=== PATIENT | male | born 1990 | race Caucasian/White ===

== ENCOUNTER 2025-06-03 09:02 | Inpatient (IN) | payer SELFPAY ==
[2025-06-03] MEDS ORDERED: Rocuronium Bromide 10 MG/ML (10ML VIAL) ONE (09:11)
[2025-06-03] MEDS ORDERED: Etomidate 40 MG (20 mL) VIAL ONE (09:11)
[2025-06-03] MEDS ORDERED: PROPOFOL 20 ML ONE (09:15)
[2025-06-03 09:28] LABS: #Basophils 0.03 10x3/uL (0.0-0.2); #Eosinophils Less than 0.03 10x3/uL (0.0-0.7); #Monocytes 0.92 10x3/uL (0.11-0.59); #Neutrophils 8.66 10x3/uL (1.40-6.50); %Basophils 0.3 % (0.0-1.0); %Eosinophils 0.0 % (0.0-10.0); %Lymphocytes 7.5 % (21.0-51.0); %Monocytes 8.8 % (0.0-10.0); %Neutrophils 83.1 % (42.0-75.0); Hematocrit 44.6 % (42.0-52.0); Hemoglobin 14.6 g/dL (14.0-18.0); Mean Corpuscular Hemoglobin 32.8 pg (27.0-31.0); Mean Corpuscular Volume 100.2 fL (78.0-98.0); Platelet Count 291 10x3/uL (130-400); Red Blood Cell (RBC) Count 4.45 mill/uL (4.70-6.10); White Blood Cell (WBC) Count 10.42 10x3/uL (4.8-10.8)
[2025-06-03 09:33] LABS: Actual Bicarbonate (HCO3v) 21.6 mEq/L (22-28); Analyzer IN Cardio ER; Base Excess -5.6 mEq/L (-2.0 to +3.0); Calcium, Ionized (venous) 1.09 mmol/L (1.16-1.32); Chloride (VBG) 100 mmol/L (98-106); Hematocrit-VBG 46 % (42.0-52.0); Hemoglobin (Hb) 15.8 g/dL (13.2-17.3); Potassium (VBG) 3.80 mmol/L (3.70-5.30); Sodium 135 mmol/L (133-146)
[2025-06-03 09:48] LABS: ALT (SGPT) 253 U/L (Less than 45); AST (SGOT) 578 U/L (11-34); Albumin 3.2 g/dL (3.1-4.5); Alkaline Phosphatase 140 U/L (40-110); Anion Gap 13 mmol/L (10-20); BUN (Urea Nitrogen) 6 mg/dL (8.9-20.6); Bilirubin, Total 0.8 mg/dL (0.3-1.2); Calc. Creatinine Clearance 0 mL/min (70-130); Calcium 7.9 mg/dL (7.8-10.44); Carbon Dioxide 22 mmol/L (22-29); Chloride 102 mmol/L (98-107); Globulin 2.9 g/dL (2.4-3.5); Glucose 151 mg/dL (70-105); Magnesium 1.7 mg/dL (1.6-2.6); Potassium 3.9 mmol/L (3.5-5.1); Sodium 133 mmol/L (136-145)
[2025-06-03] MEDS ORDERED: Dextrose 50% Abboject 50 ML SYRINGE ONE (10:01)
[2025-06-03 10:20] LABS: Bacteria/HPF None Seen HPF (None Seen); CAUTI Indications for Culture Alt mental st,lethar; Glucose, Urine (Dipstick) Greater than 1000 mg/dL (Negative); Leukocyte Negative Leu/uL (Negative); Protein, Urine (Dipstick) Negative (Neg-Trace); RBC/HPF 0-3 HPF (0-3); Specific Gravity, Urine 1.018 (1.002-1.036); WBC/HPF 0-3 HPF (0-3)
[2025-06-03 10:23] LABS: Urine Culture Reflex No No
[2025-06-03 10:28] LABS: Cocaine Metabolite Screen Negative (Negative); THC/Cannabinoid Screen Negative (Negative); Tricyclic Screen Negative (Negative)
[2025-06-03 10:31] LABS: Acetaminophen Less than 10 mcg/mL (Less than 10); Salicylate Less than 8.0 mg/dL (Less than 8.0)
[2025-06-03] MEDS ORDERED: Cefepime 2 GM VIAL ONE (10:43)
[2025-06-03] MEDS ORDERED: NOREPINEPHRINE 8 MG/250 ML-D5W 250 ML ONE (12:02)
[2025-06-03] MEDS ORDERED: Iopamidol-370 76% 500 ML MDV (1 ML CHARGE) ONE (13:00)
[2025-06-03] MEDS ORDERED: Electrolyte Replacement Protocol 1 EACH FS SCH (13:53)
[2025-06-03] MEDS ORDERED: Ondansetron PF 4 MG/2 ML Vial IVP PRN (13:53)
[2025-06-03] MEDS ORDERED: Glucagon 1 MG/ML KIT IM PRN (13:53)
[2025-06-03] MEDS ORDERED: Propofol BOLUS 1,000 MG/100 ML VIAL IV PRN (15:00)
[2025-06-03] MEDS ORDERED: Fentanyl BOLUS 100 ML IVPB PRN (15:00)
[2025-06-03] MEDS: Communication Order-Pharmacy FS ONE (15:07)
[2025-06-03] MEDS: Vancomycin 1.25 GM / NS 250 ML VIAL-2-BAG IVPB SCH (15:08)
[2025-06-03] MEDS: Acetaminophen 500 MG TAB PO PRN (15:14)
[2025-06-03] MEDS: LevoFLOXacin 750 mg/D5W 750 MG in Premix 1 BAG IVPB SCH (15:14)
[2025-06-03] MEDS: Magnesium 2 GM/50 ML(in water) 2 GM in Premix 1 BAG IVPB SCH (16:35)
[2025-06-03] MEDS: Ventilator Sedation Protocol 1 EACH FS ONE (16:36)
[2025-06-03] MEDS: Cefepime 2 GM VIAL IVPB SCH (17:26)
[2025-06-03] MEDS: Dextrose 50% Abboject 50 ML SYRINGE SLOW IVP PRN (19:23)
[2025-06-03 20:45] LABS: Anion Gap 15 mmol/L (10-20); BUN (Urea Nitrogen) 6 mg/dL (8.9-20.6); Calc. Creatinine Clearance 188 mL/min (70-130); Calcium 7.4 mg/dL (7.8-10.44); Carbon Dioxide 19 mmol/L (22-29); Chloride 104 mmol/L (98-107); Glucose 97 mg/dL (70-105); Potassium 3.9 mmol/L (3.5-5.1); Sodium 134 mmol/L (136-145)
[2025-06-03] MEDS: Mupirocin 1 GM TUBE NASAL DECOLONIZATION NASAL SCH (20:45)
[2025-06-03] MEDS: Famotidine/PF 20 mg/2ml Vial SLOW IVP SCH (20:45)
[2025-06-03] MEDS: Vancomycin 1.5 GM / NS 500ML VIAL-2-BAG IVPB SCH (21:33)
[2025-06-03] MEDS: NOREPINEPHRINE 8 MG/250 ML-D5W 250 ML IVPB SCH (22:34)
[2025-06-04 01:32] LABS: Actual Bicarbonate (HCO3a) 19.7 mEq/L (22-28); Base Excess (BEa) -5.0 mEq/L (-2.0 to +3.0); CO2 Tension 35.7 mmHg (35.0-45.0); Calcium, Ionized (arterial) 1.07 mmol/L (1.12-1.30); Hematocrit-ABG 44 % (42.0-52.0); Hemoglobin (Hb) 15.1 g/dL (14.0-18.0); O2 Tension (PaO2), arterial 92.8 mmHg (80.0-100.0); Potassium - ABG Lab 4.40 mmol/L (3.70-5.30); pH, Arterial 7.359 (7.35-7.45)
[2025-06-04 01:35] LABS: ALV-art Gradient 219.075 mmHg (0-20); Puncture Site Arterial Line
[2025-06-04 04:37] LABS: Vancomycin, Random 13.9 ug/mL (See Comment)
[2025-06-04 04:39] LABS: ALT (SGPT) 166 U/L (Less than 45); AST (SGOT) 314 U/L (11-34); Albumin 2.3 g/dL (3.1-4.5); Alkaline Phosphatase 114 U/L (40-110); Anion Gap 16 mmol/L (10-20); BUN (Urea Nitrogen) 7 mg/dL (8.9-20.6); Bilirubin, Total 0.6 mg/dL (0.3-1.2); Calc. Creatinine Clearance 204 mL/min (70-130); Calcium 7.2 mg/dL (7.8-10.44); Carbon Dioxide 17 mmol/L (22-29); Chloride 109 mmol/L (98-107); Globulin 2.7 g/dL (2.4-3.5); Glucose 73 mg/dL (70-105); Potassium 4.3 mmol/L (3.5-5.1); Sodium 138 mmol/L (136-145)
[2025-06-04 04:53] LABS: Hematocrit 42.4 % (42.0-52.0); Hemoglobin 13.9 g/dL (14.0-18.0); Mean Corpuscular Hemoglobin 32.7 pg (27.0-31.0); Mean Corpuscular Volume 99.8 fL (78.0-98.0); Platelet Count 263 10x3/uL (130-400); Red Blood Cell (RBC) Count 4.25 mill/uL (4.70-6.10); White Blood Cell (WBC) Count 10.96 10x3/uL (4.8-10.8)
[2025-06-04 05:49] LABS: Platelet Adequacy Comment Platelets Normal; RBC Morphology Within Normal Limits
[2025-06-04 08:26] LABS: Actual Bicarbonate (HCO3a) 24.1 mEq/L (22-28); Base Excess (BEa) -1.4 mEq/L (-2.0 to +3.0); CO2 Tension 43.3 mmHg (35.0-45.0); Calcium, Ionized (arterial) 1.12 mmol/L (1.12-1.30); O2 Tension (PaO2), arterial 86.2 mmHg (80.0-100.0); Potassium - ABG Lab 4.02 mmol/L (3.70-5.30); pH, Arterial 7.364 (7.35-7.45)
[2025-06-04] MEDS: Enoxaparin 40 MG (0.4 mL) SYRINGE SC SCH (08:48)
[2025-06-04] MEDS: Vancomycin HCl 1.25 GM in Sodium Chloride 0.9% 250 ML 250 ML IVPB SCH ×2 (10:27→15:39)
[2025-06-04 17:54] LABS: INR-International Normal Ratio 1.4; PTT 32.3 sec (22.9-36.1); Prothrombin Time 16.9 sec (12.0-14.7)
[2025-06-04] MEDS: Glucagon 1 MG/ML KIT IVP SCH (19:08)
[2025-06-04] MEDS ORDERED: Vasopressin In 0.9 % NaCl 40 UNIT in Premix 1 BAG IV SCH (19:30)
[2025-06-04 20:30] LABS: ALT (SGPT) 162 U/L (Less than 45); AST (SGOT) 356 U/L (11-34); Albumin 2.3 g/dL (3.1-4.5); Alkaline Phosphatase 141 U/L (40-110); Anion Gap 13 mmol/L (10-20); BUN (Urea Nitrogen) 8 mg/dL (8.9-20.6); Bilirubin, Total 0.8 mg/dL (0.3-1.2); Calc. Creatinine Clearance 177 mL/min (70-130); Calcium 7.6 mg/dL (7.8-10.44); Carbon Dioxide 21 mmol/L (22-29); Chloride 109 mmol/L (98-107); Globulin 3.0 g/dL (2.4-3.5); Glucose 184 mg/dL (70-105); Potassium 4.3 mmol/L (3.5-5.1); Sodium 139 mmol/L (136-145)
[2025-06-05 05:06] LABS: #Basophils 0.03 10x3/uL (0.0-0.2); #Eosinophils 0.17 10x3/uL (0.0-0.7); #Monocytes 0.58 10x3/uL (0.11-0.59); #Neutrophils 5.97 10x3/uL (1.40-6.50); %Basophils 0.4 % (0.0-1.0); %Eosinophils 2.0 % (0.0-10.0); %Lymphocytes 20.8 % (21.0-51.0); %Monocytes 6.8 % (0.0-10.0); %Neutrophils 69.6 % (42.0-75.0); Hematocrit 40.8 % (42.0-52.0); Hemoglobin 12.8 g/dL (14.0-18.0); Mean Corpuscular Hemoglobin 31.9 pg (27.0-31.0); Mean Corpuscular Volume 101.7 fL (78.0-98.0); Platelet Count 218 10x3/uL (130-400); Red Blood Cell (RBC) Count 4.01 mill/uL (4.70-6.10); White Blood Cell (WBC) Count 8.56 10x3/uL (4.8-10.8)
[2025-06-05 05:28] LABS: INR-International Normal Ratio 1.2; PTT 29.9 sec (22.9-36.1); Prothrombin Time 15.8 sec (12.0-14.7)
[2025-06-05 05:48] LABS: Vancomycin, Random 40.1 ug/mL (See Comment)
[2025-06-05 05:52] LABS: ALT (SGPT) 147 U/L (Less than 45); AST (SGOT) 268 U/L (11-34); Albumin 2.1 g/dL (3.1-4.5); Alkaline Phosphatase 161 U/L (40-110); Anion Gap 10 mmol/L (10-20); BUN (Urea Nitrogen) 9 mg/dL (8.9-20.6); Bilirubin, Total 0.8 mg/dL (0.3-1.2); Calc. Creatinine Clearance 118 mL/min (70-130); Calcium 8.3 mg/dL (7.8-10.44); Carbon Dioxide 21 mmol/L (22-29); Chloride 113 mmol/L (98-107); Globulin 3.0 g/dL (2.4-3.5); Glucose 115 mg/dL (70-105); Potassium 3.9 mmol/L (3.5-5.1); Sodium 140 mmol/L (136-145)
[2025-06-05 07:13] LABS: Actual Bicarbonate (HCO3a) 21.0 mEq/L (22-28); Base Excess (BEa) -3.2 mEq/L (-2.0 to +3.0); CO2 Tension 35.1 mmHg (35.0-45.0); Calcium, Ionized (arterial) 1.18 mmol/L (1.12-1.30); Hematocrit-ABG 40 % (42.0-52.0); Hemoglobin (Hb) 13.6 g/dL (14.0-18.0); O2 Tension (PaO2), arterial 108.2 mmHg (80.0-100.0); Potassium - ABG Lab 3.85 mmol/L (3.70-5.30); pH, Arterial 7.395 (7.35-7.45)
[2025-06-05 07:14] LABS: Puncture Site Arterial Line
[2025-06-05 07:15] LABS: ALV-art Gradient 133.125 mmHg (0-20)
[2025-06-05] MEDS: Vancomycin 1 GM in Premix 1 BAG IVPB SCH (20:21)
[2025-06-06 05:22] LABS: #Basophils 0.06 10x3/uL (0.0-0.2); #Eosinophils 0.35 10x3/uL (0.0-0.7); #Monocytes 0.83 10x3/uL (0.11-0.59); #Neutrophils 5.69 10x3/uL (1.40-6.50); %Basophils 0.7 % (0.0-1.0); %Eosinophils 4.2 % (0.0-10.0); %Lymphocytes 15.4 % (21.0-51.0); %Monocytes 10.0 % (0.0-10.0); %Neutrophils 69.0 % (42.0-75.0); Hematocrit 39.2 % (42.0-52.0); Hemoglobin 12.8 g/dL (14.0-18.0); Mean Corpuscular Hemoglobin 32.5 pg (27.0-31.0); Mean Corpuscular Volume 99.5 fL (78.0-98.0); Platelet Count 206 10x3/uL (130-400); Red Blood Cell (RBC) Count 3.94 mill/uL (4.70-6.10); White Blood Cell (WBC) Count 8.26 10x3/uL (4.8-10.8)
[2025-06-06 05:29] LABS: Vancomycin, Random 30.4 ug/mL (See Comment)
[2025-06-06 05:35] LABS: ALT (SGPT) 129 U/L (Less than 45); AST (SGOT) 164 U/L (11-34); Albumin 1.9 g/dL (3.1-4.5); Alkaline Phosphatase 192 U/L (40-110); Anion Gap 13 mmol/L (10-20); BUN (Urea Nitrogen) 16 mg/dL (8.9-20.6); Bilirubin, Total 1.3 mg/dL (0.3-1.2); Calc. Creatinine Clearance 62 mL/min (70-130); Calcium 8.9 mg/dL (7.8-10.44); Carbon Dioxide 24 mmol/L (22-29); Chloride 111 mmol/L (98-107); Globulin 3.4 g/dL (2.4-3.5); Glucose 210 mg/dL (70-105); Potassium 4.3 mmol/L (3.5-5.1); Sodium 144 mmol/L (136-145)
[2025-06-06 05:40] LABS: INR-International Normal Ratio 1.1; Prothrombin Time 14.3 sec (12.0-14.7)
[2025-06-06 05:52] LABS: PTT 22.0 sec (22.9-36.1)
[2025-06-06 07:27] VITALS: BMI 24.7
[2025-06-06 08:00] LABS: Actual Bicarbonate (HCO3a) 24.3 mEq/L (22-28); Base Excess (BEa) 0.2 mEq/L (-2.0 to +3.0); CO2 Tension 37.9 mmHg (35.0-45.0); Calcium, Ionized (arterial) 1.22 mmol/L (1.12-1.30); Hematocrit-ABG 40 % (42.0-52.0); Hemoglobin (Hb) 13.7 g/dL (14.0-18.0); O2 Tension (PaO2), arterial 156.1 mmHg (80.0-100.0); Potassium - ABG Lab 4.50 mmol/L (3.70-5.30); pH, Arterial 7.425 (7.35-7.45)
[2025-06-06 08:01] LABS: ALV-art Gradient 81.725 mmHg (0-20); Puncture Site Arterial Line
[2025-06-06] MEDS: Insulin Glargine 30 UNITS/0.3 ML VIAL SC SCH (15:22)
[2025-06-06] MEDS ORDERED: Vancomycin 1 GM in Premix 1 BAG IVPB SCH (20:00)
[2025-06-07] MEDS: Insulin Glargine 30 UNITS/0.3 ML VIAL SC SCH (08:23)
[2025-06-07] MEDS: Albumin 25% 25 GM (100 mL) BOT IVPB SCH ×2 (13:37→20:25)
[2025-06-07] MEDS: Hydrocortisone Sod Succ/PF 100 mg/2 ml Vial IVP SCH ×2 (13:58→20:25)
[2025-06-07 14:14] LABS: #Basophils 0.04 10x3/uL (0.0-0.2); #Eosinophils 0.32 10x3/uL (0.0-0.7); #Monocytes 0.96 10x3/uL (0.11-0.59); #Neutrophils 2.96 10x3/uL (1.40-6.50); %Basophils 0.6 % (0.0-1.0); %Eosinophils 5.0 % (0.0-10.0); %Lymphocytes 32.3 % (21.0-51.0); %Monocytes 15.1 % (0.0-10.0); %Neutrophils 46.5 % (42.0-75.0); Hematocrit 32.6 % (42.0-52.0); Hemoglobin 10.7 g/dL (14.0-18.0); Mean Corpuscular Hemoglobin 32.8 pg (27.0-31.0); Mean Corpuscular Volume 100.0 fL (78.0-98.0); Platelet Count 264 10x3/uL (130-400); Red Blood Cell (RBC) Count 3.26 mill/uL (4.70-6.10); White Blood Cell (WBC) Count 6.37 10x3/uL (4.8-10.8)
[2025-06-07 14:28] LABS: INR-International Normal Ratio 1.2; PTT 37.9 sec (22.9-36.1); Prothrombin Time 15.2 sec (12.0-14.7)
[2025-06-07 14:40] LABS: ALT (SGPT) 84 U/L (Less than 45); AST (SGOT) 80 U/L (11-34); Albumin 1.9 g/dL (3.1-4.5); Alkaline Phosphatase 189 U/L (40-110); Anion Gap 13 mmol/L (10-20); BUN (Urea Nitrogen) 22 mg/dL (8.9-20.6); Bilirubin, Total 0.9 mg/dL (0.3-1.2); Calc. Creatinine Clearance 49 mL/min (70-130); Calcium 8.9 mg/dL (7.8-10.44); Carbon Dioxide 25 mmol/L (22-29); Chloride 112 mmol/L (98-107); Globulin 3.4 g/dL (2.4-3.5); Glucose 124 mg/dL (70-105); Magnesium 2.1 mg/dL (1.6-2.6); Potassium 3.4 mmol/L (3.5-5.1); Sodium 147 mmol/L (136-145)
[2025-06-07] MEDS: Furosemide 20 MG (2 mL) VIAL SLOW IVP SCH (15:55)
[2025-06-07 16:02] LABS: Actual Bicarbonate (HCO3a) 24.2 mEq/L (22-28); Base Excess (BEa) 2.8 mEq/L (-2.0 to +3.0); CO2 Tension 27.5 mmHg (35.0-45.0); Calcium, Ionized (arterial) 1.17 mmol/L (1.12-1.30); Hematocrit-ABG 33 % (42.0-52.0); Hemoglobin (Hb) 11.1 g/dL (14.0-18.0); O2 Tension (PaO2), arterial 573.5 mmHg (80.0-100.0); Potassium - ABG Lab 3.52 mmol/L (3.70-5.30); pH, Arterial 7.563 (7.35-7.45)
[2025-06-07 16:03] LABS: Puncture Site Arterial Line
[2025-06-07 16:04] LABS: ALV-art Gradient 105.125 mmHg (0-20)
[2025-06-07] MEDS: Phenylephrine 40 MG/NS 250 ML 40 MG in Premix 1 BAG IVPB SCH (16:15)
[2025-06-07] MEDS: Potassium Chloride 40 MEQ in Premix 1 BAG IVPB SCH (17:17)
[2025-06-07 18:52] LABS: #Basophils 0.04 10x3/uL (0.0-0.2); #Eosinophils 0.14 10x3/uL (0.0-0.7); #Monocytes 0.51 10x3/uL (0.11-0.59); #Neutrophils 3.72 10x3/uL (1.40-6.50); %Basophils 0.8 % (0.0-1.0); %Eosinophils 2.8 % (0.0-10.0); %Lymphocytes 11.7 % (21.0-51.0); %Monocytes 10.1 % (0.0-10.0); %Neutrophils 74.0 % (42.0-75.0); Hematocrit 32.6 % (42.0-52.0); Hemoglobin 10.8 g/dL (14.0-18.0); Mean Corpuscular Hemoglobin 32.4 pg (27.0-31.0); Mean Corpuscular Volume 97.9 fL (78.0-98.0); Platelet Count 262 10x3/uL (130-400); Red Blood Cell (RBC) Count 3.33 mill/uL (4.70-6.10); White Blood Cell (WBC) Count 5.03 10x3/uL (4.8-10.8)
[2025-06-07 19:13] LABS: Bacteria/HPF None Seen HPF (None Seen); RBC/HPF None Seen HPF (0-3); WBC/HPF 0-3 HPF (0-3)
[2025-06-07 19:17] LABS: INR-International Normal Ratio 1.3; Prothrombin Time 16.3 sec (12.0-14.7)
[2025-06-07 19:18] LABS: PTT 38.6 sec (22.9-36.1)
[2025-06-07 21:28] LABS: ALT (SGPT) 86 U/L (Less than 45); AST (SGOT) 97 U/L (11-34); Albumin 2.3 g/dL (3.1-4.5); Alkaline Phosphatase 215 U/L (40-110); Anion Gap 19 mmol/L (10-20); BUN (Urea Nitrogen) 27 mg/dL (8.9-20.6); Bilirubin, Total 1.6 mg/dL (0.3-1.2); Calc. Creatinine Clearance 47 mL/min (70-130); Calcium 9.4 mg/dL (7.8-10.44); Carbon Dioxide 25 mmol/L (22-29); Chloride 109 mmol/L (98-107); Globulin 3.7 g/dL (2.4-3.5); Glucose 336 mg/dL (70-105); Magnesium 2.0 mg/dL (1.6-2.6); Potassium 4.2 mmol/L (3.5-5.1); Sodium 149 mmol/L (136-145)
[2025-06-07 21:55] LABS: Actual Bicarbonate (HCO3a) 27.4 mEq/L (22-28); Base Excess (BEa) 3.7 mEq/L (-2.0 to +3.0); CO2 Tension 38.1 mmHg (35.0-45.0); Calcium, Ionized (arterial) 1.15 mmol/L (1.12-1.30); Hematocrit-ABG 34 % (42.0-52.0); Hemoglobin (Hb) 11.7 g/dL (14.0-18.0); O2 Tension (PaO2), arterial 612.1 mmHg (80.0-100.0); Potassium - ABG Lab 4.18 mmol/L (3.70-5.30); Puncture Site LINE; pH, Arterial 7.475 (7.35-7.45)
[2025-06-07 21:56] LABS: ALV-art Gradient 53.275 mmHg (0-20)
[2025-06-08 04:26] LABS: #Basophils Less than 0.03 10x3/uL (0.0-0.2); #Eosinophils Less than 0.03 10x3/uL (0.0-0.7); #Monocytes 0.80 10x3/uL (0.11-0.59); #Neutrophils 3.47 10x3/uL (1.40-6.50); %Basophils 0.4 % (0.0-1.0); %Eosinophils 0.0 % (0.0-10.0); %Lymphocytes 12.5 % (21.0-51.0); %Monocytes 16.2 % (0.0-10.0); %Neutrophils 70.1 % (42.0-75.0); Hematocrit 30.4 % (42.0-52.0); Hemoglobin 10.0 g/dL (14.0-18.0); Mean Corpuscular Hemoglobin 32.5 pg (27.0-31.0); Mean Corpuscular Volume 98.7 fL (78.0-98.0); Platelet Count 249 10x3/uL (130-400); Red Blood Cell (RBC) Count 3.08 mill/uL (4.70-6.10); White Blood Cell (WBC) Count 4.95 10x3/uL (4.8-10.8)
[2025-06-08 04:35] VITALS: TEMP 98.2
[2025-06-08 04:41] LABS: ALT (SGPT) 67 U/L (Less than 45); AST (SGOT) 60 U/L (11-34); Albumin 3.0 g/dL (3.1-4.5); Alkaline Phosphatase 169 U/L (40-110); Anion Gap 16 mmol/L (10-20); BUN (Urea Nitrogen) 29 mg/dL (8.9-20.6); Bilirubin, Total 1.2 mg/dL (0.3-1.2); Calc. Creatinine Clearance 50 mL/min (70-130); Calcium 9.3 mg/dL (7.8-10.44); Carbon Dioxide 28 mmol/L (22-29); Chloride 109 mmol/L (98-107); Globulin 3.0 g/dL (2.4-3.5); Glucose 199 mg/dL (70-105); Magnesium 2.2 mg/dL (1.6-2.6); Potassium 3.8 mmol/L (3.5-5.1); Sodium 149 mmol/L (136-145)
[2025-06-08 04:51] LABS: INR-International Normal Ratio 1.3; PTT 32.7 sec (22.9-36.1); Prothrombin Time 15.8 sec (12.0-14.7)
[2025-06-08] MEDS: Potassium Chloride 20 MEQ in Premix 1 BAG IVPB ONE (05:48)
[2025-06-08 06:18] LABS: Actual Bicarbonate (HCO3a) 28.5 mEq/L (22-28); Base Excess (BEa) 5.7 mEq/L (-2.0 to +3.0); CO2 Tension 34.9 mmHg (35.0-45.0); Calcium, Ionized (arterial) 1.13 mmol/L (1.12-1.30); Hematocrit-ABG 32 % (42.0-52.0); Hemoglobin (Hb) 11.0 g/dL (14.0-18.0); O2 Tension (PaO2), arterial 510.5 mmHg (80.0-100.0); Potassium - ABG Lab 3.99 mmol/L (3.70-5.30); pH, Arterial 7.530 (7.35-7.45)
[2025-06-08 06:26] LABS: ALV-art Gradient 158.875 mmHg (0-20); Puncture Site Arterial Line
[2025-06-08 07:01] LABS: Bacteria/HPF None Seen HPF (None Seen); Glucose, Urine (Dipstick) 500 mg/dL (Negative); Leukocyte 250 Leu/uL (Negative); Protein, Urine (Dipstick) Negative (Neg-Trace); RBC/HPF 0-3 HPF (0-3); Specific Gravity, Urine 1.010 (1.002-1.036)
[2025-06-08 11:44] LABS: Actual Bicarbonate (HCO3a) 26.6 mEq/L (22-28); Base Excess (BEa) 3.5 mEq/L (-2.0 to +3.0); CO2 Tension 34.9 mmHg (35.0-45.0); Calcium, Ionized (arterial) 1.12 mmol/L (1.12-1.30); Hematocrit-ABG 31 % (42.0-52.0); Hemoglobin (Hb) 10.7 g/dL (14.0-18.0); O2 Tension (PaO2), arterial 564.0 mmHg (80.0-100.0); Potassium - ABG Lab 3.57 mmol/L (3.70-5.30); pH, Arterial 7.500 (7.35-7.45)
[2025-06-08 11:50] LABS: Puncture Site Arterial Line
[2025-06-08 11:51] LABS: ALV-art Gradient 105.375 mmHg (0-20)
[2025-06-08 11:56] LABS: Actual Bicarbonate (HCO3a) 27.0 mEq/L (22-28); Base Excess (BEa) 3.0 mEq/L (-2.0 to +3.0); CO2 Tension 39.3 mmHg (35.0-45.0); Calcium, Ionized (arterial) 1.14 mmol/L (1.12-1.30); Hematocrit-ABG 31 % (42.0-52.0); Hemoglobin (Hb) 10.7 g/dL (14.0-18.0); O2 Tension (PaO2), arterial 582.8 mmHg (80.0-100.0); Potassium - ABG Lab 3.60 mmol/L (3.70-5.30); pH, Arterial 7.455 (7.35-7.45)
[2025-06-08 11:57] LABS: ALV-art Gradient 81.075 mmHg (0-20); Puncture Site Arterial Line
[2025-06-08 12:10] LABS: Actual Bicarbonate (HCO3a) 30.5 mEq/L (22-28); Base Excess (BEa) 2.6 mEq/L (-2.0 to +3.0); Calcium, Ionized (arterial) 1.18 mmol/L (1.12-1.30); Hematocrit-ABG 33 % (42.0-52.0); Hemoglobin (Hb) 11.2 g/dL (14.0-18.0); O2 Tension (PaO2), arterial 596.4 mmHg (80.0-100.0); Potassium - ABG Lab 3.58 mmol/L (3.70-5.30); pH, Arterial 7.292 (7.35-7.45)
[2025-06-08 12:14] LABS: CO2 Tension 64.5 mmHg (35.0-45.0); Puncture Site Arterial Line
[2025-06-08 16:46] LABS: #Basophils Less than 0.03 10x3/uL (0.0-0.2); #Eosinophils 0.04 10x3/uL (0.0-0.7); #Monocytes 1.34 10x3/uL (0.11-0.59); #Neutrophils 5.19 10x3/uL (1.40-6.50); %Basophils 0.3 % (0.0-1.0); %Eosinophils 0.5 % (0.0-10.0); %Lymphocytes 16.0 % (21.0-51.0); %Monocytes 16.9 % (0.0-10.0); %Neutrophils 65.4 % (42.0-75.0); Hematocrit 29.7 % (42.0-52.0); Hemoglobin 9.7 g/dL (14.0-18.0); Mean Corpuscular Hemoglobin 32.7 pg (27.0-31.0); Mean Corpuscular Volume 100.0 fL (78.0-98.0); Platelet Count 264 10x3/uL (130-400); Red Blood Cell (RBC) Count 2.97 mill/uL (4.70-6.10); White Blood Cell (WBC) Count 7.93 10x3/uL (4.8-10.8)
[2025-06-08 17:00] LABS: INR-International Normal Ratio 1.2; PTT 36.3 sec (22.9-36.1); Prothrombin Time 15.3 sec (12.0-14.7)
[2025-06-08 17:37] LABS: ALT (SGPT) 61 U/L (Less than 45); AST (SGOT) 43 U/L (11-34); Albumin 2.7 g/dL (3.1-4.5); Alkaline Phosphatase 167 U/L (40-110); Anion Gap 13 mmol/L (10-20); BUN (Urea Nitrogen) 34 mg/dL (8.9-20.6); Bilirubin, Direct 0.4 mg/dL (0.1-0.3); Bilirubin, Total 0.9 mg/dL (0.3-1.2); Calc. Creatinine Clearance 54 mL/min (70-130); Calcium 9.1 mg/dL (7.8-10.44); Carbon Dioxide 31 mmol/L (22-29); Chloride 112 mmol/L (98-107); Globulin 3.1 g/dL (2.4-3.5); Glucose 142 mg/dL (70-105); Magnesium 2.7 mg/dL (1.6-2.6); Potassium 3.9 mmol/L (3.5-5.1); Sodium 152 mmol/L (136-145)
[2025-06-08 19:04] LABS: Actual Bicarbonate (HCO3a) 26.5 mEq/L (22-28); Base Excess (BEa) 0.9 mEq/L (-2.0 to +3.0); CO2 Tension 46.3 mmHg (35.0-45.0); Calcium, Ionized (arterial) 1.14 mmol/L (1.12-1.30); Hematocrit-ABG 32 % (42.0-52.0); Hemoglobin (Hb) 10.8 g/dL (14.0-18.0); O2 Tension (PaO2), arterial 504.2 mmHg (80.0-100.0); Potassium - ABG Lab 3.72 mmol/L (3.70-5.30); pH, Arterial 7.375 (7.35-7.45)
[2025-06-08 19:05] LABS: Puncture Site Arterial Line
[2025-06-08 19:06] LABS: ALV-art Gradient 150.925 mmHg (0-20)
[2025-06-08 22:14] LABS: Actual Bicarbonate (HCO3a) 24.7 mEq/L (22-28); Base Excess (BEa) -0.3 mEq/L (-2.0 to +3.0); CO2 Tension 41.8 mmHg (35.0-45.0); Calcium, Ionized (arterial) 1.17 mmol/L (1.12-1.30); Hematocrit-ABG 32 % (42.0-52.0); Hemoglobin (Hb) 10.9 g/dL (14.0-18.0); O2 Tension (PaO2), arterial 585.4 mmHg (80.0-100.0); Potassium - ABG Lab 3.31 mmol/L (3.70-5.30); pH, Arterial 7.390 (7.35-7.45)
[2025-06-08 22:18] LABS: ALV-art Gradient 75.350 mmHg (0-20)
[2025-06-09 05:04] LABS: #Basophils Less than 0.03 10x3/uL (0.0-0.2); #Eosinophils 0.03 10x3/uL (0.0-0.7); #Monocytes 1.40 10x3/uL (0.11-0.59); #Neutrophils 6.13 10x3/uL (1.40-6.50); %Basophils 0.2 % (0.0-1.0); %Eosinophils 0.3 % (0.0-10.0); %Lymphocytes 17.5 % (21.0-51.0); %Monocytes 15.1 % (0.0-10.0); %Neutrophils 66.1 % (42.0-75.0); Hematocrit 29.6 % (42.0-52.0); Hemoglobin 9.7 g/dL (14.0-18.0); Mean Corpuscular Hemoglobin 32.2 pg (27.0-31.0); Mean Corpuscular Volume 98.3 fL (78.0-98.0); Platelet Count 276 10x3/uL (130-400); Red Blood Cell (RBC) Count 3.01 mill/uL (4.70-6.10); White Blood Cell (WBC) Count 9.27 10x3/uL (4.8-10.8)
[2025-06-09 05:17] LABS: INR-International Normal Ratio 1.2; Prothrombin Time 14.9 sec (12.0-14.7)
[2025-06-09 05:18] LABS: PTT 30.9 sec (22.9-36.1)
[2025-06-09 05:28] LABS: ALT (SGPT) 53 U/L (Less than 45); AST (SGOT) 50 U/L (11-34); Albumin 3.4 g/dL (3.1-4.5); Alkaline Phosphatase 176 U/L (40-110); Anion Gap 21 mmol/L (10-20); BUN (Urea Nitrogen) 40 mg/dL (8.9-20.6); Bilirubin, Direct 0.4 mg/dL (0.1-0.3); Bilirubin, Total 0.7 mg/dL (0.3-1.2); Calc. Creatinine Clearance 49 mL/min (70-130); Calcium 9.4 mg/dL (7.8-10.44); Carbon Dioxide 28 mmol/L (22-29); Chloride 111 mmol/L (98-107); Globulin 3.0 g/dL (2.4-3.5); Glucose 146 mg/dL (70-105); Magnesium 2.6 mg/dL (1.6-2.6); Potassium 3.0 mmol/L (3.5-5.1); Sodium 157 mmol/L (136-145)
[2025-06-09] MEDS ORDERED: Potassium Chloride 40 MEQ in Premix 1 BAG IVPB SCH (05:45)
[2025-06-09 06:28] LABS: Actual Bicarbonate (HCO3a) 28.6 mEq/L (22-28); Base Excess (BEa) 5.7 mEq/L (-2.0 to +3.0); CO2 Tension 35.1 mmHg (35.0-45.0); Calcium, Ionized (arterial) 1.16 mmol/L (1.12-1.30); Hematocrit-ABG 29 % (42.0-52.0); Hemoglobin (Hb) 9.9 g/dL (14.0-18.0); O2 Tension (PaO2), arterial 559.7 mmHg (80.0-100.0); Potassium - ABG Lab 3.01 mmol/L (3.70-5.30); pH, Arterial 7.529 (7.35-7.45)
[2025-06-09 06:29] LABS: ALV-art Gradient 109.425 mmHg (0-20); Puncture Site Arterial Line
[2025-06-09] MEDS ORDERED: Famotidine/PF 20 mg/2ml Vial SLOW IVP SCH (09:00)
[2025-06-09 12:37] VITALS: BMI 24.5
[2025-06-09] MEDS ORDERED: Iopamidol-370 76% 500 ML MDV (1 ML CHARGE) ONE (13:33)
[2025-06-09 13:34] LABS: ALV-art Gradient 141.675 mmHg (0-20); Actual Bicarbonate (HCO3a) 26.6 mEq/L (22-28); Base Excess (BEa) 2.3 mEq/L (-2.0 to +3.0); CO2 Tension 40.5 mmHg (35.0-45.0); Calcium, Ionized (arterial) 1.16 mmol/L (1.12-1.30); Hematocrit-ABG 29 % (42.0-52.0); Hemoglobin (Hb) 9.9 g/dL (14.0-18.0); O2 Tension (PaO2), arterial 520.7 mmHg (80.0-100.0); Potassium - ABG Lab 3.17 mmol/L (3.70-5.30); Puncture Site Arterial Line; pH, Arterial 7.436 (7.35-7.45)
[2025-06-09 15:12] VITALS: BP 96/82
[2025-06-09] MEDS ORDERED: Potassium Chloride 20 MEQ in Premix 1 BAG IVPB SCH (15:15)
[2025-06-09 17:19] LABS: ALV-art Gradient 106.575 mmHg (0-20); Actual Bicarbonate (HCO3a) 28.4 mEq/L (22-28); Base Excess (BEa) 4.0 mEq/L (-2.0 to +3.0); CO2 Tension 42.1 mmHg (35.0-45.0); Calcium, Ionized (arterial) 1.20 mmol/L (1.12-1.30); Hematocrit-ABG 30 % (42.0-52.0); Hemoglobin (Hb) 10.2 g/dL (14.0-18.0); O2 Tension (PaO2), arterial 553.8 mmHg (80.0-100.0); Potassium - ABG Lab 3.28 mmol/L (3.70-5.30); Puncture Site Arterial Line; pH, Arterial 7.447 (7.35-7.45)
== END 2025-06-08 12:07 | disposition expired | DRG 870 ==
LOC: ERS 09:02 → EDBD 11:40 → CCU 11:40 → IMCU/EMU 06-08 06:18 → CCU 06-08 06:25
PROVIDERS: ADMIT Family Medicine; ATTEND Internal Medicine
PROC: 4A02X4A Measurement of Cardiac Electrical Activity, Guidance, External Approach (ICD-10-PCS; principal; 2025-06-03)
PROC: 02HV33Z Insertion of Infusion Device into Superior Vena Cava, Percutaneous Approach (ICD-10-PCS; principal; 2025-06-03)
PROC: 0BH17EZ Insertion of Endotracheal Airway into Trachea, Via Natural or Artificial Opening (ICD-10-PCS; principal; 2025-06-03)
PROC: 5A1955Z Respiratory Ventilation, Greater than 96 Consecutive Hours (ICD-10-PCS; principal; 2025-06-03)
PROC: 3E03329 Introduction of Other Anti-infective into Peripheral Vein, Percutaneous Approach (ICD-10-PCS; 2025-06-03)
PROC: XX20X89 Monitoring of Brain Electrical Activity, Computer-aided Detection and Notification, New Technology Group 9 (ICD-10-PCS; 2025-06-03)
PROC: 0T9B70Z Drainage of Bladder with Drainage Device, Via Natural or Artificial Opening (ICD-10-PCS; 2025-06-03)
PROC: 3E04329 Introduction of Other Anti-infective into Central Vein, Percutaneous Approach (ICD-10-PCS; 2025-06-03)
PROC: 3E033XZ Introduction of Vasopressor into Peripheral Vein, Percutaneous Approach (ICD-10-PCS; 2025-06-03)
PROC: 3E043XZ Introduction of Vasopressor into Central Vein, Percutaneous Approach (ICD-10-PCS; 2025-06-03)
PROC: 03HY32Z Insertion of Monitoring Device into Upper Artery, Percutaneous Approach (ICD-10-PCS; 2025-06-04)
PROC: 4A133B1 Monitoring of Arterial Pressure, Peripheral, Percutaneous Approach (ICD-10-PCS; 2025-06-04)
PROC: 4A133J1 Monitoring of Arterial Pulse, Peripheral, Percutaneous Approach (ICD-10-PCS; 2025-06-04)
PROC: 0D9670Z Drainage of Stomach with Drainage Device, Via Natural or Artificial Opening (ICD-10-PCS; 2025-06-04)
PROC: 30233J1 Transfusion of Nonautologous Serum Albumin into Peripheral Vein, Percutaneous Approach (ICD-10-PCS; 2025-06-07)
PROC: 4A133R1 Monitoring of Arterial Saturation, Peripheral, Percutaneous Approach (ICD-10-PCS; 2025-06-08)
PROC: 0B948ZZ Drainage of Right Upper Lobe Bronchus, Via Natural or Artificial Opening Endoscopic (ICD-10-PCS; 2025-06-08)
PROC: 0B938ZZ Drainage of Right Main Bronchus, Via Natural or Artificial Opening Endoscopic (ICD-10-PCS; 2025-06-08)
PROC: 0B968ZZ Drainage of Right Lower Lobe Bronchus, Via Natural or Artificial Opening Endoscopic (ICD-10-PCS; 2025-06-08)
PROC: 0B958ZZ Drainage of Right Middle Lobe Bronchus, Via Natural or Artificial Opening Endoscopic (ICD-10-PCS; 2025-06-08)
PROC: 0B978ZZ Drainage of Left Main Bronchus, Via Natural or Artificial Opening Endoscopic (ICD-10-PCS; 2025-06-08)
PROC: 0B918ZZ Drainage of Trachea, Via Natural or Artificial Opening Endoscopic (ICD-10-PCS; 2025-06-08)
DX: A41.9 Sepsis, unspecified organism (principal); E10.641 Type 1 diabetes mellitus with hypoglycemia with coma; K72.00 Acute and subacute hepatic failure without coma; J69.0 Pneumonitis due to inhalation of food and vomit; G93.41 Metabolic encephalopathy; J96.01 Acute respiratory failure with hypoxia; R65.21 Severe sepsis with septic shock; G93.1 Anoxic brain damage, not elsewhere classified; K92.0 Hematemesis; I24.89 Other forms of acute ischemic heart disease; R32 Unspecified urinary incontinence; Z51.5 Encounter for palliative care; Z66 Do not resuscitate; Z78.1 Physical restraint status
CPT/HCPCS: 31500; 36415; 36416; 36556; 51702; 70450; 71045; 71275; 74018; 76705; 80053; 80202; 80306; 80307; 81001; 81015; 82248; 82533; 82805; 83036; 83605; 83735; 84100; 84145; 84146; 84484; 84681; 85025; 85610; 85730; 86850; 86900; 86901; 87040; 87077; 87081; 87086; 87149; 87186; 87428; 93005; 93010; 93306; 94002; 94003; 94640; 94760; 95819; 96365; 96366; 96367; 96368; 96374; 99292; J0692; J1611; J1650; J1720; J1815; J1940; J1956; J2250; J2270; J2543; J2597; J2704; J3373; J3475; J3480; J7030; J7042; J7050; J7070; J7999; P9047; Q9967